=== PATIENT | male | born 1940 | race Caucasian/White ===

== ENCOUNTER 2024-03-24 10:47 | Outpatient (CLI) | payer BC ==
[2024-03-24 11:40] LABS: ALBUMIN 3.1 G/DL (3.4-5.0); ANION GAP 12 (8-16); BLOOD UREA NITROGEN 18 MG/DL (7-18); BUN/CREATININE RATIO 14.3 (10.0-20.0); CHLORIDE 107 MMOL/L (99-107); CREATININE 1.26 MG/DL (0.60-1.10); GLUCOSE 122 MG/DL (70-104); POTASSIUM 5.6 MMOL/L (3.5-5.1); SODIUM 141 MMOL/L (135-145); TOTAL CARBON DIOXIDE 22.2 MMOL/L (24-32); eGFR 55 ML/MIN
[2024-03-24] MEDS ORDERED: iohexol 350 MG/ML 50ML vial IV ONE (12:20)
[2024-03-24] MEDS ORDERED: iohexol 350MG/ML 100ml bottle IV ONE (12:20)
== END 2024-03-24 23:59 | disposition home or self-care (01) ==
LOC: RAD 10:47
PROVIDERS: ATTEND Internal Medicine Interventional Cardiology
DX: I70.213 Atherosclerosis of native arteries of extremities with intermittent claudication, bilateral legs (principal); I70.0 Atherosclerosis of aorta; N28.1 Cyst of kidney, acquired; I65.23 Occlusion and stenosis of bilateral carotid arteries; M47.817 Spondylosis without myelopathy or radiculopathy, lumbosacral region
CPT/HCPCS: 36415; 75635; 80048; Q9967